=== PATIENT | female | born 1985 | race African-American/Black ===

== ENCOUNTER 2017-09-01 07:18 | Emergency (ER) | payer OTHER ==
[~2017-09-01] VITALS: Ht 172.7 cm; Wt 77.1 kg
[2017-09-01 07:27] VITALS: BP 112/81
--- NOTE | 2017-09-01 07:54 | PHYS DOC ---
Past History Past Medical History: No Pertinent History Past Surgical History: No Surgical History Smoking: Non-smoker Alcohol Use: None Drug Use: None Adult General Chief Complaint Chief Complaint: ALLERGIES HPI HPI 32-year-old female presents with itchy eyes, runny nose, itchy throat for the past one week. The patient states that she gets similar symptoms every spring. She has never really been treated for seasonal allergies. She was given a prescription for hydroxyzine at one time but it made her sleepy and did not work very well. She has not tried any other antihistamines. She denies fever, chills, cough, shortness of breath, or sore throat. She does not believe that her symptoms are associated with any other exposures such as chemicals, makeup, or perfumes as none of these have changed recently. She has no other complaints. Review of Systems Review of Systems Constitutional: Denies fever or chills [] Eyes: Pruritus[] HENT: Nasal congestion and runny nose. [] Respiratory: Denies cough or shortness of breath [] Cardiovascular: No additional information not addressed in HPI [] GI: Denies abdominal pain, nausea, vomiting, bloody stools or diarrhea [] : Denies dysuria or hematuria [] Musculoskeletal: Denies back pain or joint pain [] Integument: Denies rash or skin lesions [] Neurologic: Denies headache, focal weakness or sensory changes [] Endocrine: Denies polyuria or polydipsia [] All other systems were reviewed and found to be within normal limits, except as documented in this note. Allergies Allergies Allergies Coded Allergies Type Severity Reaction Last Updated Verified No Known Drug Allergies 09/01/17 No Physical Exam Physical Exam Constitutional: Well developed, well nourished, no acute distress, non-toxic appearance. [] HENT: Normocephalic, atraumatic, bilateral external ears normal, oropharynx moist, no oral exudates, clear rhinitis. [] Eyes: PERRLA, EOMI, watery eyes. [] Neck: Normal range of motion, no tenderness, supple, no stridor. [] Cardiovascular:Heart rate regular rhythm, no murmur [] Lungs & Thorax: Bilateral breath sounds clear to auscultation [] Abdomen: Bowel sounds normal, soft, no tenderness, no masses, no pulsatile masses. [] Skin: Warm, dry, no erythema, no rash. [] Back: No tenderness, no CVA tenderness. [] Extremities: No tenderness, no cyanosis, no clubbing, ROM intact, no edema. [] Neurologic: Alert and oriented X 3, normal motor function, normal sensory function, no focal deficits noted. [] Psychologic: Affect normal, judgement normal, mood normal. [] Current Patient Data Vital Signs Vital Signs Date Time Temp Pulse Resp B/P (MAP) Pulse Ox O2 Delivery O2 Flow Rate FiO2 09/01/17 07:27 98.1 51 16 100 Room Air EKG EKG [] Radiology/Procedures Radiology/Procedures [] Course & Med Decision Making Course & Med Decision Making Pertinent Labs and Imaging studies reviewed. (See chart for details) The patient's symptoms appear to be associated with seasonal allergies, likely pollen. We discussed strategies to minimize her exposure at home. Also advised patient to try Flonase and Zyrtec. She has further difficulty, she'll follow up with her PCP and consider a referral to an manager agricultural. [] Dragon Disclaimer Dragon Disclaimer This electronic medical record was generated, in whole or in part, using a voice recognition dictation system. Departure Departure: Impression: Primary Impression: Seasonal allergic rhinitis due to pollen Disposition: HOME, SELF-CARE Condition: STABLE Referrals: [facility] (PCP) Patient Instructions: Allergic Rhinitis Additional Instructions: We're allergy symptoms, you should try Flonase nasal spray and Zyrtec pills. He can diabetes without a prescription. Zyrtec comes in a generic form called cetirizine which works just as well. Start by using Flonase as directed on the package. If this does not improve her symptoms enough and taking Zyrtec once a day. You can also minimize her exposure by using a quality air filter or ear house HVAC system. He should also keep your windows closed in your car and in your house and use the A/C system for cooling. This will minimize your exposure to pollen in the air. You can also see her primary care physician about a referral to an manager agricultural for further management. BRENNEN VALLADARES DO September 01, 2017 07:54
== END 2017-09-01 07:50 | disposition home or self-care (01) ==
LOC: ER 07:18
DX: J30.1 Allergic rhinitis due to pollen (principal); J30.2 Other seasonal allergic rhinitis
CPT/HCPCS: 99281

== ENCOUNTER 2018-09-08 04:47 | Emergency (ER) | payer OTHER ==
[~2018-09-08] VITALS: Ht 162.6 cm; Wt 79.4 kg
[2018-09-08 05:23] VITALS: BP 106/67
[2018-09-08 05:36] LABS: BASO % 1 % (0-3); EOS # 0.4 x10^3/uL (0.0-0.7); EOS % 8 % (0-3); HEMATOCRIT 34.3 % (36.0-47.0); HEMOGLOBIN 11.5 g/dL (12.0-15.5); LYMPH # 1.6 x10^3/uL (1.0-4.8); LYMPH % 33 % (24-48); MEAN CORPUSCULAR HEMOGLOBIN 29 pg (25-35); MEAN CORPUSCULAR HGB CONC 34 g/dL (31-37); MEAN CORPUSCULAR VOLUME 87 fL (79-100); MONO # 0.3 x10^3/uL (0.0-1.1); MONO % 7 % (0-9); NEUT # 2.4 x10^3uL (1.8-7.7); NEUT % 51 % (31-73); PLATELET COUNT 181 x10^3/uL (140-400); RED BLOOD COUNT 3.95 x10^6/uL (3.50-5.40); RED CELL DISTRIBUTION WIDTH 13.8 % (11.5-14.5); WHITE BLOOD COUNT 4.8 x10^3/uL (4.0-11.0)
--- NOTE | 2018-09-08 05:37 | PHYS DOC ---
Past History Past Medical History: No Pertinent History (ROLAND ATKINSON Jr., DO) Past Surgical History: No Surgical History (ROLAND ATKINSON Jr., DO) Smoking: Non-smoker Alcohol Use: None Drug Use: None (ROLAND ATKINSON Jr., DO) Adult General Chief Complaint Chief Complaint: VAGINAL BLEEDING [facility] HPI Patient is a 33-year-old female who presents with report of vaginal bleeding after engaging in sexual intercourse with her . Patient is a at approximately 13 weeks . She denies any pelvic pain. She states that she has had moderate amount of bleeding since it started and has been passing some clots. She denies any chest pain, shortness of breath or fever. She also denies any urinary discomfort.[] (ROLAND ATKINSON Jr., DO) Review of Systems Review of Systems Constitutional: Denies fever or chills [] Respiratory: Denies cough or shortness of breath [] Cardiovascular: No additional information not addressed in [facility] [] GI: Denies abdominal pain, nausea, vomiting, bloody stools or diarrhea [] : Denies dysuria or hematuria. Complains of vaginal bleeding. [] All other systems were reviewed and found to be within normal limits, except as documented in this note. (ROLAND ATKINSON Jr., DO) Allergies Allergies Allergies Coded Allergies Type Severity Reaction Last Updated Verified No Known Drug Allergies 09/01/17 No (ROLAND ATKINSON Jr., DO) Physical Exam Physical Exam Constitutional: Well developed, well nourished, no acute distress, non-toxic appearance. [] HENT: Normocephalic, atraumatic, bilateral external ears normal, oropharynx moist, no oral exudates, nose normal. [] Eyes: PERRLA, EOMI, conjunctiva normal, no discharge. [] Neck: Normal range of motion, no tenderness, supple, no stridor. [] Cardiovascular:Heart rate regular rhythm, no murmur [] Lungs & Thorax: Bilateral breath sounds clear to auscultation [] Abdomen: Bowel sounds normal, soft, no tenderness. [] Skin: Warm, dry, no erythema, no rash. [] Extremities: No tenderness, no cyanosis, no clubbing, ROM intact, no edema. [] Neurologic: Alert and oriented X 3, normal motor function, normal sensory function, no focal deficits noted. [] (ROLADN ATKINSON Jr. DO) Current Patient Data Vital Signs Vital Signs Date Time Temp Pulse Resp B/P (MAP) Pulse Ox O2 Delivery O2 Flow Rate FiO2 09/08/18 04:57 98.3 71 18 100 Room Air Lab Results Laboratory Tests Test 09/08/18 05:02 POC Urine HCG, Qualitative hcg positive (Negative) (ROLAND ATKINSON Jr. DO) EKG EKG [] (ROLAND ATKINSON Jr., DO) Radiology/Procedures Radiology/Procedures [] (ROLAND ATKINSON Jr., DO) Radiology/Procedures PROCEDURE: PREG MORE THAN OR EQ TO 14 WKS Testicle ultrasound greater than or equal to 14 weeks. HISTORY: with vaginal bleeding Transabdominal ultrasound was performed. There is an intrauterine . There is a marginal placenta previa. Placenta is anterior. There is a normal amount of amniotic fluid. There is a uterine leiomyoma extending off the uterus to the right. Left ovary is identified with a small follicle. Right ovary was not identified. Complete survey was not performed. Fetus was in transverse position. Heart beat was noted with a rate of 152 bpm. bladder and stomach were visualized. Cervix was 5 cm in length. Measurements were obtained including biparietal diameter of 2.7 cm corresponding to 14 weeks 6 days, head circumference of 9.9 cm corresponding to 14 weeks 4 days,'s abdominal circumference of 8 cm corresponding to 14 weeks 3 days and femur length of 4.5 cm corresponding to 14 weeks 2 days. Estimated gestational age by ultrasound 14 weeks 4 days with an estimated date of delivery of March 05, 2019. IMPRESSION: 1. Viable intrauterine 14 weeks 4 days gestational age. 2. Uterine leiomyoma. 3. Small cyst or follicle left ovary. 4. Low-lying or marginal placenta. (MOODY ALFONSO DO) Course & Med Decision Making Course & Med Decision Making Pertinent Labs and Imaging studies reviewed. (See chart for details) Patient moved to room upon arrival was evaluated by your medical staff after which blood work was drawn and OB with transvaginal ultrasound ordered. At this time patient's workup is pending and patient is being signed out to oncoming ER provider at 6:00 AM. (ROLAND ATKINSON Jr. DO) Course & Med Decision Making Received patient at 6 AM. Agree with previous H&P. There is no evidence of intrauterine demise. While the placenta is low lying, it does not appear to be placenta previa at this time. Patient's blood type is O+ so there is no need for RhoGAM at this time. Discussed findings and plan with patient who voiced understanding. All questions were answered. Patient was discharged in improved condition. (MOODY ALFONSO DO) Dragon Disclaimer Dragon Disclaimer This electronic medical record was generated, in whole or in part, using a voice recognition dictation system. (ROLAND ATKINSON Jr., DO) Departure Departure: Impression: Primary Impression: Threatened miscarriage Disposition: HOME, SELF-CARE Condition: IMPROVED Referrals: MICKEY HERNANDEZ PA-C (PCP) Follow-up in 2 days Patient Instructions: Threatened Miscarriage Additional Instructions: Follow-up with your regular doctor in 2 days. Nothing in the vagina until cleared by her primary care physician or SERVICE ORDER DISPATCHER. This means no tampons, no douching, no sexual intercourse. Return to the ER if worsening vaginal bleeding or any other concerns. ROLAND ATKINSON Jr., DO September 08, 2018 05:37 MOODY ALFONSO DO September 08, 2018 07:19
[2018-09-08 05:41] LABS: BILIRUBIN,URINE NEG (NEG); CLARITY,URINE CLEAR; COLOR,URINE YELLOW; GLUCOSE,URINE NEG (NEG)
[2018-09-08 05:42] LABS: BACTERIA,URINE 0 /HPF (0-FEW); NITRITE,URINE NEG (NEG); RBC,URINE OCC /HPF (0-2); SQUAMOUS EPITHELIAL CELL,UR FEW /LPF; UROBILINOGEN,URINE 0.2 mg/dL (0.2 mg/dL); WBC,URINE RARE /HPF (0-4)
[2018-09-08 05:43] LABS: SPERM,URINE PRESENT /HPF
[2018-09-08 05:47] LABS: ALBUMIN 3.1 g/dL (3.4-5.0); CREATININE 0.7 mg/dL (0.6-1.0); DIRECT BILIRUBIN 0.1 mg/dL (0.0-0.2); GFR 117.3; POTASSIUM 3.4 mmol/L (3.5-5.1); TOTAL BILIRUBIN 0.2 mg/dL (0.2-1.0)
--- NOTE | 2018-09-08 07:06 | RAD ---
Testicle ultrasound greater than or equal to 14 weeks. HISTORY: with vaginal bleeding Transabdominal ultrasound was performed. There is an intrauterine . There is a marginal placenta previa. Placenta is anterior. There is a normal amount of amniotic fluid. There is a uterine leiomyoma extending off the uterus to the right. Left ovary is identified with a small follicle. Right ovary was not identified. Complete survey was not performed. Fetus was in transverse position. Heart beat was noted with a rate of 152 bpm. bladder and stomach were visualized. Cervix was 5 cm in length. Measurements were obtained including biparietal diameter of 2.7 cm corresponding to 14 weeks 6 days, head circumference of 9.9 cm corresponding to 14 weeks 4 days,'s abdominal circumference of 8 cm corresponding to 14 weeks 3 days and femur length of 4.5 cm corresponding to 14 weeks 2 days. Estimated gestational age by ultrasound 14 weeks 4 days with an estimated date of delivery of March 05, 2019. IMPRESSION: 1. Viable intrauterine 14 weeks 4 days gestational age. 2. Uterine leiomyoma. 3. Small cyst or follicle left ovary. 4. Low-lying or marginal placenta. Electronically signed by: Alfonso Florence MD (09/08/2018 7:03 AM) [id number]
== END 2018-09-08 07:47 | disposition home or self-care (01) ==
LOC: ER 04:47
DX: O20.0 Threatened abortion (principal); O34.12 Maternal care for benign tumor of corpus uteri, second trimester; O34.82 Maternal care for other abnormalities of pelvic organs, second trimester; N83.202 Unspecified ovarian cyst, left side; Z3A.14 14 weeks gestation of pregnancy
CPT/HCPCS: 36415; 76805; 80048; 80076; 81001; 81025; 84702; 85025; 86900; 86901; 99285-25

== ENCOUNTER 2018-10-23 08:33 | Emergency (ER) | payer OTHER ==
[~2018-10-23] VITALS: Ht 165.1 cm; Wt 84.1 kg
--- NOTE | 2018-10-23 09:01 | PHYS DOC ---
Past History Past Medical History: No Pertinent History Past Surgical History: No Surgical History Smoking: Non-smoker Alcohol Use: None Drug Use: None Adult General Chief Complaint Chief Complaint: ABDOMINAL PAIN IN HPI HPI 33-year-old female who is 20 weeks presents with lower abdominal pain and cramping. She is also having increased fatigue. The patient is in the and has been doing some outdoor physical training. She is only walking, no high intensity training. She denies vaginal bleeding or cramping. She is starting to feel the baby sometimes but not consistently. She denies fever or chills. He has had increased urination, but no dysuria. Review of Systems Review of Systems Constitutional: Denies fever or chills [] Eyes: Denies change in visual acuity, redness, or eye pain [] HENT: Denies nasal congestion or sore throat [] Respiratory: Denies cough or shortness of breath [] Cardiovascular: No additional information not addressed in HPI [] GI: Lower abdominal pain. Denies nausea, vomiting, bloody stools or diarrhea [] : Denies dysuria or hematuria [] Musculoskeletal: Denies back pain or joint pain [] Integument: Denies rash or skin lesions [] Neurologic: Denies headache, focal weakness or sensory changes [] Endocrine: Denies polyuria or polydipsia [] All other systems were reviewed and found to be within normal limits, except as documented in this note. Current Medications Current Medications Current Medications Medications (Trade) Dose Ordered Sig/Demarco Start Time Stop Time Status Last Admin Dose Admin Sodium Chloride 1,000 ml @ 1,000 mls/hr 1X ONCE 10/23/18 09:00 10/23/18 09:59 Allergies Allergies Allergies Coded Allergies Type Severity Reaction Last Updated Verified No Known Drug Allergies 09/01/17 No Physical Exam Physical Exam Constitutional: Well developed, well nourished, no acute distress, non-toxic appearance. [] HENT: Normocephalic, atraumatic, bilateral external ears normal, oropharynx moist, no oral exudates, nose normal. [] Eyes: PERRLA, EOMI, conjunctiva normal, no discharge. [] Neck: Normal range of motion, no tenderness, supple, no stridor. [] Cardiovascular:Heart rate regular rhythm, no murmur [] Lungs & Thorax: Bilateral breath sounds clear to auscultation [] Abdomen: Bowel sounds normal, soft, gravid, no masses, no pulsatile masses. [] Skin: Warm, dry, no erythema, no rash. [] Back: No tenderness, no CVA tenderness. [] Extremities: No tenderness, no cyanosis, no clubbing, ROM intact, no edema. [] Neurologic: Alert and oriented X 3, normal motor function, normal sensory functi on, no focal deficits noted. [] Psychologic: Affect normal, judgement normal, mood normal. [] Current Patient Data Vital Signs Vital Signs Date Time Temp Pulse Resp B/P (MAP) Pulse Ox O2 Delivery O2 Flow Rate FiO2 10/23/18 08:45 98.0 74 16 100 Room Air EKG EKG [] Radiology/Procedures Radiology/Procedures [] Course & Med Decision Making Course & Med Decision Making Pertinent Labs and Imaging studies reviewed. (See chart for details) Asians labs are unremarkable. Her urinalysis does suggest urinary tract infection. I will treat her with fosfomycin in the ED. She may also be having a component of round ligament pain. I have discussed this with the patient. She will follow up with her OB as recently planned. She is stable for discharge at this time. [] Dragon Disclaimer Dragon Disclaimer This electronic medical record was generated, in whole or in part, using a voice recognition dictation system. Departure Departure: Impression: Primary Impression: Urinary tract infection during Disposition: 01 HOME, SELF-CARE Condition: STABLE Referrals: MICKEY HERNANDEZ PA-C (PCP) Patient Instructions: - Urinary Tract Infection Problem Qualifiers Primary Impression: Urinary tract infection during Trimester: second trimester Qualified Codes: O23.42 - Unspecified infection of urinary tract in , second trimester BRENNEN VALLADARES DO Oct 23, 2018 09:01
[2018-10-23] MEDS: IV NORMAL SALINE 1,000ML 1,000 ML IV ONE (09:12)
[2018-10-23 09:27] LABS: BASO % 0 % (0-3); EOS # 0.1 x10^3/uL (0.0-0.7); EOS % 2 % (0-3); HEMATOCRIT 36.2 % (36.0-47.0); HEMOGLOBIN 12.1 g/dL (12.0-15.5); LYMPH # 1.3 x10^3/uL (1.0-4.8); LYMPH % 23 % (24-48); MEAN CORPUSCULAR HEMOGLOBIN 30 pg (25-35); MEAN CORPUSCULAR HGB CONC 34 g/dL (31-37); MEAN CORPUSCULAR VOLUME 88 fL (79-100); MONO # 0.3 x10^3/uL (0.0-1.1); MONO % 6 % (0-9); NEUT # 3.9 x10^3uL (1.8-7.7); NEUT % 69 % (31-73); PLATELET COUNT 183 x10^3/uL (140-400); RED CELL DISTRIBUTION WIDTH 13.6 % (11.5-14.5); WHITE BLOOD COUNT 5.7 x10^3/uL (4.0-11.0)
[2018-10-23 09:36] LABS: BACTERIA,URINE MANY /HPF (0-FEW); BILIRUBIN,URINE NEG (NEG); CLARITY,URINE HAZY; COLOR,URINE YELLOW; GLUCOSE,URINE NEG (NEG); NITRITE,URINE NEG (NEG); RBC,URINE 0 /HPF (0-2); SQUAMOUS EPITHELIAL CELL,UR MANY /LPF; UROBILINOGEN,URINE 0.2 mg/dL (0.2 mg/dL)
[2018-10-23 09:41] LABS: ALBUMIN/GLOBULIN RATIO 0.7 (1.0-1.7); CREATININE 0.6 mg/dL (0.6-1.0); GFR 140.2; POTASSIUM 3.5 mmol/L (3.5-5.1); TOTAL BILIRUBIN 0.2 mg/dL (0.2-1.0); TOTAL PROTEIN 7.3 g/dL (6.4-8.2)
--- NOTE | 2018-10-23 09:52 | RAD ---
OB ULTRASOUND, > 14 WEEKS Clinical Indication: abdominal pain. Comparison: Obstetric ultrasound, September 08, 2018. Technique: Multiple grayscale images, color Doppler, and M-mode images of the uterus are obtained. Findings: There is a single intrauterine gestation in breech presentation. The placenta is anterior in location without evidence of placenta previa. The amount of amniotic fluid appears appropriate. Amniotic fluid index is 9.3 cm. Cervical length is 5.2 cm. Biometrical data: BPD = 5.2 cm for 21 weeks 5 days. HC = 18.4 cm for 20 weeks 5 days. AC = 15.3 cm for 20 weeks 3 days. FL = 3.2 cm for 19 weeks 6 days. HC/AC ratio = 1.20. Overall, the estimated sonographic gestational age is 20 weeks and 5 days for an estimated date of delivery of March 07, 2019. The estimated date of delivery provided by the last menstrual period is 2018. Estimated weight is 343 +/- 51 grams. A 4 chamber heart is identified with positive cardiac activity. The estimated heart rate is 141 beats per minute. A complete anatomic survey is not performed. The maternal ovaries are not identified due to overlying bowel gas. Impression: Single live intrauterine gestation with estimated sonographic gestational age of 20 weeks and 5 days. Electronically signed by: Mike Espinal MD (10/23/2018 9:49 AM) [id number]
[2018-10-23] MEDS: FOSFOMYCIN TROMETHAMINE 3 GM PACKET PO ONE (11:04)
[2018-10-23 11:10] VITALS: BP 125/78
== END 2018-10-23 11:15 | disposition home or self-care (01) ==
LOC: ER 08:33
DX: O23.42 Unspecified infection of urinary tract in pregnancy, second trimester (principal); Z3A.20 20 weeks gestation of pregnancy
CPT/HCPCS: 36415; 76805; 80053; 81001; 85025; 87086; 99285-25; J7030

== ENCOUNTER → 2020-06-11 | Outpatient (CLI) | payer OTHER ==
--- NOTE | 2020-06-11 17:27 | RAD ---
Examination: Limited left breast ultrasound. INDICATION: 35-year-old woman at 18 weeks gestation by report presents with a left breast lump presen t over the past 3 months. COMPARISON: None. TECHNIQUE: Grayscale and color Doppler imaging of the left breast in the area of patient reported pal pable concern was performed. FINDINGS: Sonographic evaluation of the area of palpable concern identifies at 6:00 position 4 cm from the nipp le a parallel orientation oval mildly hypoechoic 5.3 x 5.0 x 1.9 cm solid vascular mass with internal septae. Margins are well-circumscribed and there is posterior acoustic enhancement. This lies just b eneath the skin surface. Sonographic survey of the left axilla reveals no adenopathy. IMPRESSION: Benign sonographic findings compatible with a tubular adenoma, fibroadenoma, or lactating adenoma. Gi rina its large size however surgical consultation is recommended for consideration of excisional biops y. A phylloides tumor can appear similar. BI-RADS Category 2 Benign findings Recommend clinical management which may include a surgical consultation for consideration of excision al biopsy. The lesion is amenable to imaging guided core needle biopsy if requested. Whether a biopsy is pursued or not, patient should still undergo routine age appropriate annual mammo graphic screening, starting at age 40 in average risk women. Electronically signed by: Caitlyn Green MD (06/11/2020 5:24 PM) [id number]
== END ==
LOC: US 12:19
PROVIDERS: ATTEND Obstetrics & Gynecology
DX: N63.20 Unspecified lump in the left breast, unspecified quadrant (principal)
CPT/HCPCS: 76641

== ENCOUNTER 2020-12-18 21:17 | Emergency (ER) | payer OTHER ==
[~2020-12-18] VITALS: Ht 162.6 cm; Wt 97.7 kg
[2020-12-18 21:30] VITALS: BP 134/86
[2020-12-18] MEDS ORDERED: CLIN150C16 PO (21:34)
--- NOTE | 2020-12-18 21:37 | PHYS DOC ---
Past History Past Medical History: No Pertinent History (ANUP LEE APRN) Past Surgical History: No Surgical History (ANUP LEE APRN) Smoking: Non-smoker Alcohol Use: None Drug Use: None (ANUP LEE APRN) General Adult EDM: Chief Complaint: ABSCESS HPI: HPI: Patient is a 35-year-old female who presents to the ER for a "abscess" to her left thigh x3 days. Patient denies any fevers. She rates her pain an out of 10. No treatment prior to arrival. (ANUP LEE APRN) Review of Systems: Review of Systems: 14 body systems of the review of systems have been reviewed. See HPI for pertinent positive and negative responses, otherwise all other systems are negative, nonpertinent or noncontributory (ANUP LEE APRN) Allergies: Allergies: Allergies Coded Allergies Type Severity Reaction Last Updated Verified No Known Drug Allergies 09/01/17 No (ANUP LEE APRN) Physical Exam: PE: Constitutional: Well developed, well nourished, no acute distress, non-toxic appearance. [] HENT: Normocephalic, atraumatic Eyes: PERRL, EOMI, conjunctiva normal, no discharge. [] Neck: Normal range of motion, no stridor Cardiovascular: Normal peripheral perfusion Lungs & Thorax: Normal work of breathing, no tachypnea Skin: Warm, dry, grouping of 3 clear vesicles to left inner thigh with surrounding redness and warmth, vesicles are intact Back: Normal range of motion Extremities: No tenderness, no cyanosis, no clubbing, ROM intact, no edema. [] Neurologic: Alert and oriented X 3, normal motor function, normal sensory function, no focal deficits noted. [] Psychologic: Affect normal, judgement normal, mood normal. [] (ANUP LEE APRN) EKG: EKG: [] (ANUP LEE APRN) Radiology/Procedures: Radiology/Procedures: [] (ANUP LEE APRN) Heart Score: C/O Chest Pain: No Risk Factors: Risk Factors: DM, Current or recent (<one month) smoker, HTN, HLP, family history of CAD, obesity. Risk Scores: Score 0 - 3: 2.5% MACE over next 6 weeks - Discharge Home Score 4 - 6: 20.3% MACE over next 6 weeks - Admit for Clinical Observation Score 7 - 10: 72.7% MACE over next 6 weeks - Early Invasive Strategies (ANUP LEE APRN) Course & Med Decision Making: Course & Med Decision Making Pertinent Labs and Imaging studies reviewed. (See chart for details) Patient is a 35-year-old female being seen in the ER for cellulitis and vesicles to her left thigh. Patient was treated with an antibiotic in the ER. She was advised to take antibiotics and she was discharged home with follow-up with your primary care provider. I discussed with patient all findings as well as the need to follow-up with PCP for further evaluation and treatment or return to the ER if any new or worsening symptoms. Strict return precautions were also discussed at length. Patient voiced understanding and agreement with the plan. Patient is hemodynamically stable at the time of disposition. (ANUP LEE APRN) Course & Med Decision Making Did not see or evaluate patient. Agree with CLINICAL ANALYST's work-up and disposition per note. (RANDY SCHWARTZ MD) Dragon Disclaimer: Dragon Disclaimer: This electronic medical record was generated, in whole or in part, using a voice recognition dictation system. (ANUP LEE APRN) Departure Departure: Impression: Primary Impression: Cellulitis Qualified Codes: L03.116 - Cellulitis of left lower limb Disposition: HOME / SELF CARE / HOMELESS Condition: GOOD Referrals: MICKEY HERNANDEZ PA-C (PCP) Patient Instructions: Cellulitis Additional Instructions: You were seen in the ER for an infection and vesicles to your left thigh. Do not pop these vessels as they will drain on their own. Please take the antibiotic as directed. Make sure you start and finish it completely. You were given your first dose in the ER. You can take Tylenol/ibuprofen for pain. Follow-up with your primary care provider on Sunday regarding your ER visit. If you develop high fevers refractory to treatment, worsening of your pain, shortness of breath, chest pain or any new or worsening concerns please return to the ER. EMERGENCY DEPARTMENT GENERAL DISCHARGE INSTRUCTIONS Thank you for coming to [facility] (ED) today and trusting us with you care. We trust that you had a positivie experience in our Emergency Department. If you wish to speak to the department management, you may call the director at [phone]. YOUR FOLLOW UP INSTRUCTIONS ARE FOLLOWS: 1. Do you have a private Doctor? If you do not have a private doctor, please ask for a resource list of physicians or clinics that may be able to assist you with follow up care. 2. The Emergency Physician has interpreted your x-rays. The X-Ray specialist will also review them. If there is a change in the findings, you will be notified in 48 hours when at all possible. 3. A lab test or culture has been done, your results will be reviewed and you will be notified if you need a change in treatment. ADDITIONAL INSTRUCTIONS AND INFORMATION: 1. Your care today has been supervised by a physician who is specially trained in emergency care. Many problems require more than one evaluation for a complete diagnosis and treatment. We recommend that you schedule your follow up appointment as recommended to ensure complete treatment of you illness or injury. If you are unable to obtain follow up care and continue to have a problem, or if your condition worsens, we recommend that you return to the ED. 2. We are not able to safely determine your condition over the phone nor are we able to give sound medical advice over the phone. For these safety reasons, if you call for medical advice we will ask you to come to the ED for further evaluation. 3. If you have any questions regarding these discharge instructions please call the ED at [phone]. SAFETY INFORMATION: In the interest of safety, wellness, and injury prevention; we encourage you to wear your sealbelt, if you smoke; quite smoking, and we encourage family to use a protective helmet for bicycling and other sporting events that present an increased risk for head injury. IF YOUR SYMPTOMS WORSEN OR NEW SYMPTOMS DEVELOP, OR YOU HAVE CONCERNS ABOUT YOUR CONDITION; OR IF YOUR CONDITION WORSENS WHILE YOU ARE WAITING FOR YOUR FOLLOW UP APPOINTMENT; EITHER CONTACT YOUR PRIMARY CARE DOCTOR, THE PHYSICIAN WHOSE NAME AND NUMBER YOU WERE GIVEN, OR RETURN TO THE ED IMMEDIATELY. Scripts Clindamycin Hcl (CLINDAMYCIN HCL) 150 Mg Capsule 450 MG PO TID for skin infection for 7 Days, #21 CAP 0 Refills Prov: ANUP LEE APRN 12/18/20 ANUP LEE APRN Dec 18, 2020 21:37 RANDY SCHWARTZ MD Dec 18, 2020 21:38
[2020-12-18] MEDS ORDERED: CLINDAMYCIN HCL 150 MG CAPSULE PO ONE (22:00)
== END 2020-12-18 22:13 | disposition home or self-care (01) ==
LOC: ER 21:17
DX: L03.116 Cellulitis of left lower limb (principal)
CPT/HCPCS: 99283